=== PATIENT | female | born 2000 | race American Indian/Alaskan Native ===

== ENCOUNTER 2022-02-14 00:49 | Outpatient (CLI) | payer OTHER ==
[2022-02-14] MEDS ORDERED: LACTATED RINGERS 500 ML IV ONE (01:09)
[2022-02-14 01:44] VITALS: BP 96/54
[2022-02-14] MEDS ORDERED: ACETAMINOPHEN 500 MG TAB PO ONE (01:56)
[2022-02-14 02:23] LABS: Basophils # (Auto) 0.1 K/mm3 (0.0-0.1); Basophils % (Auto) 0.6 % (0.0-1.8); Eosinophils # (Auto) 0.2 K/mm3 (0.0-0.4); Eosinophils % (Auto) 1.8 % (0.0-4.3); Hematocrit 28.5 % (30.3-42.9); Hemoglobin 9.6 gm/dl (10.1-14.3); Lymphocytes # (Auto) 2.6 K/mm3 (1.2-5.4); Lymphocytes % (Auto) 25.7 % (13.4-35.0); Mean Corpuscular HGB Conc 34 % (30-34); Mean Corpuscular Volume 88 fl (79-97); Monocytes # (Auto) 0.5 K/mm3 (0.0-0.8); Platelet Count 235 K/mm3 (140-440); Red Blood Count 3.25 M/mm3 (3.65-5.03); Red Cell Distribution Width 14.5 % (13.2-15.2)
[2022-02-14 03:40] LABS: Bacteria,Urine 3+ /HPF (Negative); Bilirubin,Urine NEG (Negative); Blood,Urine NEG (Negative); Color,Urine Yellow (Yellow); Mucus,Urine FEW /HPF; Protein,Urine <15 mg/dL mg/dL (Negative); Urobilinogen,Urine < 2.0 mg/dL (<2.0)
== END 2022-02-14 04:48 | disposition home or self-care (01) ==
LOC: TRG 00:49 → LD 00:58 → TRG 04:48
PROVIDERS: ATTEND Student in an Organized Health Care Education/Training Program
DX: O26.892 Other specified pregnancy related conditions, second trimester (principal); M54.50 Low back pain, unspecified; R10.30 Lower abdominal pain, unspecified; R10.2 Pelvic and perineal pain; Z3A.20 20 weeks gestation of pregnancy
CPT/HCPCS: 36415; 81001; 85025; 87086; J7120; 96360

== ENCOUNTER 2022-04-10 16:09 | Outpatient (CLI) | payer OTHER ==
[2022-04-10] MEDS ORDERED: LACTATED RINGERS 500 ML IV ONE (18:45)
[2022-04-10] MEDS ORDERED: TERBUTALINE 1 MG/1 ML INJ SUB-Q SCH (19:00)
[2022-04-10 19:17] LABS: Bilirubin,Urine NEG (Negative); Blood,Urine NEG (Negative); Color,Urine Yellow (Yellow); Protein,Urine <15 mg/dL mg/dL (Negative); Urobilinogen,Urine < 2.0 mg/dL (<2.0)
[2022-04-10 19:19] LABS: Bacteria,Urine 1+ /HPF (Negative); Mucus,Urine FEW /HPF
[2022-04-10 19:28] VITALS: BP 108/60
--- NOTE | 2022-04-10 21:05 | Ultrasound Report ---
ULTRASOUND OBSTETRIC LIMITED INDICATION / CLINICAL INFORMATION: vaginal discharge. COMPARISON: None available. FINDINGS: AMNIOTIC FLUID INDEX (cm) = 10.7 PRESENTATION: Cephalic. HEART RATE (beats per minute): 157 ADDITIONAL FINDINGS: Cervical length is normal and measures 4.5 cm. IMPRESSION: Single live intrauterine . No significant abnormality. Signer Name: Thoe Fernando MD Signed: 04/10/2022 9:01 PM Workstation Name: [id number]
== END 2022-04-10 20:31 | disposition home or self-care (01) ==
LOC: TRG 16:09 → APU 16:09 → TRG 20:31
PROVIDERS: ATTEND Obstetrics & Gynecology
DX: O26.893 Other specified pregnancy related conditions, third trimester (principal); Z3A.28 28 weeks gestation of pregnancy
CPT/HCPCS: 36415; 59025; 76815; 81001; 82731; 84112

== ENCOUNTER 2022-06-23 19:31 | Inpatient (IN) | payer OTHER ==
--- NOTE | 2022-06-24 00:55 | Ultrasound Report ---
ULTRASOUND BIOPHYSICAL PROFILE Ultrasound obstetric: Limited INDICATION / CLINICAL INFORMATION: well-being COMPARISON: None available. FINDINGS: BREATHING MOVEMENT = 2 GROSS BODY MOVEMENT = 2 TONE = 2 QUALITATIVE AMNIOTIC FLUID VOLUME = 2 TOTAL BIOPHYSICAL SCORE = 8/8 AMNIOTIC FLUID INDEX (cm) = 4.3 PRESENTATION: Cephalic. HEART RATE (beats per minute): 149 IMPRESSION: 1. biophysical profile = /8 2. Decreased TIFFANIE of 4.3 cm Signer Name: David Clancy MD Signed: 06/24/2022 12:51 AM Workstation Name: [email or web address]
[2022-06-24] MEDS ORDERED: LACTATED RINGERS 1,000 ML IV SCH ×2 (02:00→04:30)
[2022-06-24 03:00] LABS: Hematocrit 31.6 % (30.3-42.9); Hemoglobin 10.6 gm/dl (10.1-14.3); Mean Corpuscular HGB Conc 33 % (30-34); Mean Corpuscular Volume 89 fl (79-97); Platelet Count 211 K/mm3 (140-440); Red Blood Count 3.57 M/mm3 (3.65-5.03); Red Cell Distribution Width 14.6 % (13.2-15.2)
--- NOTE | 2022-06-24 03:48 | History and Physical Report ---
History of Present Illness Date of examination: 06/24/22 Date of admission: 06/24/2022 Chief complaint: decreased movement History of present illness: Patient is a 21 yo at 39w3d presenting with decreased movement. Notes earlier today she noticed her baby was not moving as much. Per chart called triage and was given [facility] precautions and if no improvement to come in. Noticed movement did not change and she began having contractions so she came in for evaluation. Notes leakage that she has had for some time, but was told it maybe normal discharge as it has only been intermittent. Denies vaignal bleeding. Past History Past Medical History: asthma, other (hyperthyroidism) Past Surgical History: tonsillectomy Family/Genetic History: hypertension, cancer Social history: no significant social history - Obstetrical History Expected Date of Delivery: 06/28/22 Actual Gestation: 39 Week(s) 3 Day(s) : 1 Para: 0 Hx # Term Pregnancies: 0 Number of Pregnancies: 0 Spontaneous Abortions: 0 Induced : 0 Number of Living Children: 0 Medications and Allergies Allergies Allergy/AdvReac Type Severity Reaction Status Date / Time latex Allergy Intermediate Rash Verified 04/10/22 19:15 Home Medications Medication Instructions Recorded Confirmed Last Taken Type Albuterol Mdi (or & Nicu Only) 2 puff IH QID PRN 11/13/15 11/13/15 Unknown History [Proair] predniSONE 10 mg PO QDAY #5 tab 11/14/15 Unknown Rx Active Meds: Active Medications Lactated Ringer's (Lactated Ringers) 1,000 mls @ 125 mls/hr IV DIRECT YOMAIRA Review of Systems Genitourinary: contractions, other (decreased movement) - Vital Signs Vital signs: Vital Signs Pulse Pulse Ox 95 H 100 06/23/22 21:53 06/23/22 21:53 Temp Pulse Resp BP Pulse Ox 98.2 F 101 H 106/58 99 06/24/22 02:11 06/24/22 03:45 06/24/22 03:40 06/24/22 03:45 - Physical Exam Abdomen: Positive: normal appearance, soft, normal bowel sounds. Negative: distention, tenderness Extremities: - Obstetrical FHR: category 2 FHR comments: rare late decelerations Uterine Contraction Monitor Mode: External Uterine Contraction Pattern: Irregular Results Result Diagrams: 06/24/22 01:50 Abnormal lab results 06/24/22 Range/Units 01:50 RBC 3.57 L (3.65-5.03) M/mm3 All other labs normal. Assessment and Plan S/p BPP with TIFFANIE noted at 4.3 with CAt 2 FHT Findings reviewed with patient. Recommend IOL IOL process reviewed with patient. Discussed medications, timing, and expectations. Patient currently declines SVE. Discussed it will need to be completed once we are ready to start IOL Will begin once staffing available Records reviewed, GBS negative Type and screen, CBC, and COVID ordered - Patient Problems (1) Oligohydramnios in [place] in third trimester Current Visit: Yes Status: Acute (2) 39 weeks gestation of Current Visit: Yes Status: Acute
[2022-06-24] MEDS ORDERED: MINERAL OIL 30 ML ORAL LIQD PO PRN (04:24)
[2022-06-24] MEDS ORDERED: DINOPROSTONE 10 MG VAG SUPP VG ONE (04:24)
[2022-06-24] MEDS ORDERED: miSOPROStol 200 MCG TAB PR PRN (04:24)
[2022-06-24] MEDS ORDERED: LOPERAMIDE 2 MG CAP PO PRN (04:24)
[2022-06-24] MEDS ORDERED: LIDOCAINE (2%) 20 MG/1 ML VIAL 20 ML MDV INFILTRATI ONE (04:24)
[2022-06-24] MEDS ORDERED: TERBUTALINE 1 MG/1 ML INJ SUB-Q PRN (04:24)
[2022-06-24] MEDS ORDERED: CARBOPROST TROMETHAMINE 250 MCG/1 ML INJ IM PRN (04:24)
[2022-06-24] MEDS ORDERED: OXYTOCIN 10 UNIT/1 ML INJ IM PRN (04:24)
[2022-06-24] MEDS ORDERED: METHYLERGONOVINE MALEATE 0.2 MG/ML VIAL IM PRN (04:24)
[2022-06-24] MEDS ORDERED: OXYTOCIN DRIP 30 UNITS/500 ML BAG IV SCH (05:00)
--- NOTE | 2022-06-24 08:30 | Progress Note ---
Assessment and Plan - Patient Problems (1) Oligohydramnios in [place] in third trimester Current Visit: Yes Status: Acute Plan to address problem: IOL - Cervidil Pain management IV or epidural PRN Anticipate Subjective - Subjective Date of service: 06/24/22 Patient reports: movement normal, contractions, other (loss of mucus plug) Objective - Vital Signs Vital Signs: Vital Signs - 12hr 06/23/22 06/23/22 06/23/22 21:53 21:58 22:00 Temperature 99.4 F Pulse Rate 95 H 96 H Respiratory Rate Blood Pressure O2 Sat by Pulse 100 98 Oximetry O2 Sat by Pulse Oximetry [ Bilateral Throughout] 06/23/22 06/23/22 06/23/22 22:01 22:03 22:08 Temperature Pulse Rate 106 H 104 H 109 H Respiratory Rate Blood Pressure 109/66 O2 Sat by Pulse 99 99 Oximetry O2 Sat by Pulse Oximetry [ Bilateral Throughout] 06/23/22 06/23/22 06/23/22 22:13 22:18 22:23 Temperature Pulse Rate 112 H 105 H 101 H Respiratory Rate Blood Pressure O2 Sat by Pulse 98 98 98 Oximetry O2 Sat by Pulse Oximetry [ Bilateral Throughout] 06/23/22 06/23/22 06/23/22 22:28 22:33 22:38 Temperature Pulse Rate 110 H 91 H 101 H Respiratory Rate Blood Pressure O2 Sat by Pulse 99 98 98 Oximetry O2 Sat by Pulse Oximetry [ Bilateral Throughout] 06/23/22 06/23/22 06/23/22 22:43 22:48 22:53 Temperature Pulse Rate 98 H 104 H 91 H Respiratory Rate Blood Pressure O2 Sat by Pulse 97 97 99 Oximetry O2 Sat by Pulse Oximetry [ Bilateral Throughout] 06/23/22 06/23/22 06/23/22 22:58 23:03 23:08 Temperature Pulse Rate 104 H 109 H 104 H Respiratory Rate Blood Pressure O2 Sat by Pulse 99 99 99 Oximetry O2 Sat by Pulse Oximetry [ Bilateral Throughout] 06/23/22 06/23/22 06/23/22 23:13 23:18 23:23 Temperature Pulse Rate 90 98 H 91 H Respiratory Rate Blood Pressure O2 Sat by Pulse 99 98 99 Oximetry O2 Sat by Pulse Oximetry [ Bilateral Throughout] 06/24/22 06/24/22 06/24/22 01:29 01:34 01:39 Temperature Pulse Rate 109 H 98 H 108 H Respiratory Rate Blood Pressure O2 Sat by Pulse 98 98 98 Oximetry O2 Sat by Pulse Oximetry [ Bilateral Throughout] 06/24/22 06/24/22 06/24/22 01:44 01:49 01:54 Temperature Pulse Rate 101 H 101 H 106 H Respiratory Rate Blood Pressure O2 Sat by Pulse 99 97 97 Oximetry O2 Sat by Pulse Oximetry [ Bilateral Throughout] 06/24/22 06/24/22 06/24/22 01:59 02:04 02:09 Temperature Pulse Rate 99 H 104 H 103 H Respiratory Rate Blood Pressure O2 Sat by Pulse 97 97 98 Oximetry O2 Sat by Pulse Oximetry [ Bilateral Throughout] 06/24/22 06/24/22 06/24/22 02:11 02:12 02:14 Temperature 98.2 F Pulse Rate 109 H Respiratory Rate Blood Pressure O2 Sat by Pulse 97 Oximetry O2 Sat by Pulse 98 Oximetry [ Bilateral Throughout] 06/24/22 06/24/22 06/24/22 02:17 02:19 02:24 Temperature Pulse Rate 101 H 104 H 107 H Respiratory Rate Blood Pressure 92/54 O2 Sat by Pulse 94 98 Oximetry O2 Sat by Pulse Oximetry [ Bilateral Throughout] 06/24/22 06/24/22 06/24/22 02:29 02:34 02:39 Temperature Pulse Rate 109 H 113 H 107 H Respiratory Rate Blood Pressure O2 Sat by Pulse 98 97 98 Oximetry O2 Sat by Pulse Oximetry [ Bilateral Throughout] 06/24/22 06/24/22 06/24/22 02:44 02:49 02:54 Temperature Pulse Rate 103 H 98 H 83 Respiratory Rate Blood Pressure O2 Sat by Pulse 98 98 98 Oximetry O2 Sat by Pulse Oximetry [ Bilateral Throughout] 06/24/22 06/24/22 06/24/22 03:16 03:21 03:26 Temperature Pulse Rate 92 H 81 97 H Respiratory Rate Blood Pressure O2 Sat by Pulse 99 99 99 Oximetry O2 Sat by Pulse Oximetry [ Bilateral Throughout] 06/24/22 06/24/22 06/24/22 03:35 03:40 03:45 Temperature Pulse Rate 99 H 110 H 101 H Respiratory Rate Blood Pressure 106/58 O2 Sat by Pulse 99 100 99 Oximetry O2 Sat by Pulse Oximetry [ Bilateral Throughout] 06/24/22 06/24/22 06/24/22 03:50 03:55 04:00 Temperature Pulse Rate 111 H 99 H 100 H Respiratory Rate Blood Pressure O2 Sat by Pulse 99 99 99 Oximetry O2 Sat by Pulse Oximetry [ Bilateral Throughout] 06/24/22 06/24/22 06/24/22 04:05 04:10 04:18 Temperature Pulse Rate 95 H 113 H 105 H Respiratory Rate Blood Pressure O2 Sat by Pulse 99 98 99 Oximetry O2 Sat by Pulse Oximetry [ Bilateral Throughout] 06/24/22 06/24/22 06/24/22 04:23 04:28 04:33 Temperature Pulse Rate 91 H 98 H 88 Respiratory Rate Blood Pressure O2 Sat by Pulse 97 98 98 Oximetry O2 Sat by Pulse Oximetry [ Bilateral Throughout] 06/24/22 06/24/22 06/24/22 04:38 04:43 04:48 Temperature Pulse Rate 88 87 86 Respiratory Rate Blood Pressure O2 Sat by Pulse 98 98 99 Oximetry O2 Sat by Pulse Oximetry [ Bilateral Throughout] 06/24/22 06/24/22 06/24/22 04:55 05:00 05:05 Temperature Pulse Rate 101 H 96 H 103 H Respiratory Rate Blood Pressure O2 Sat by Pulse 99 99 100 Oximetry O2 Sat by Pulse Oximetry [ Bilateral Throughout] 06/24/22 06/24/22 06/24/22 05:10 05:15 05:20 Temperature Pulse Rate 100 H 107 H 104 H Respiratory Rate Blood Pressure O2 Sat by Pulse 100 99 100 Oximetry O2 Sat by Pulse Oximetry [ Bilateral Throughout] 06/24/22 06/24/22 06/24/22 05:25 05:30 05:35 Temperature Pulse Rate 120 H 103 H 100 H Respiratory Rate Blood Pressure O2 Sat by Pulse 99 100 99 Oximetry O2 Sat by Pulse Oximetry [ Bilateral Throughout] 06/24/22 06/24/22 06/24/22 05:40 05:45 05:53 Temperature Pulse Rate 99 H 97 H 92 H Respiratory Rate Blood Pressure O2 Sat by Pulse 100 100 99 Oximetry O2 Sat by Pulse Oximetry [ Bilateral Throughout] 06/24/22 06/24/22 06/24/22 05:58 06:03 06:08 Temperature Pulse Rate 95 H 95 H 96 H Respiratory Rate Blood Pressure O2 Sat by Pulse 98 98 99 Oximetry O2 Sat by Pulse Oximetry [ Bilateral Throughout] 06/24/22 06/24/22 06/24/22 06:13 06:18 06:23 Temperature Pulse Rate 90 86 88 Respiratory Rate Blood Pressure O2 Sat by Pulse 97 98 97 Oximetry O2 Sat by Pulse Oximetry [ Bilateral Throughout] 06/24/22 06/24/22 06/24/22 06:28 06:33 06:37 Temperature Pulse Rate 88 87 80 Respiratory Rate Blood Pressure O2 Sat by Pulse 96 97 93 Oximetry O2 Sat by Pulse Oximetry [ Bilateral Throughout] 06/24/22 06/24/22 06/24/22 06:38 06:43 06:48 Temperature Pulse Rate 100 H 87 87 Respiratory Rate Blood Pressure O2 Sat by Pulse 98 97 97 Oximetry O2 Sat by Pulse Oximetry [ Bilateral Throughout] 06/24/22 06/24/22 06/24/22 06:53 06:58 07:03 Temperature Pulse Rate 86 90 92 H Respiratory Rate Blood Pressure O2 Sat by Pulse 97 98 98 Oximetry O2 Sat by Pulse Oximetry [ Bilateral Throughout] 06/24/22 06/24/22 06/24/22 07:08 07:13 07:18 Temperature Pulse Rate 94 H 96 H 101 H Respiratory Rate Blood Pressure O2 Sat by Pulse 97 97 98 Oximetry O2 Sat by Pulse Oximetry [ Bilateral Throughout] 06/24/22 06/24/22 06/24/22 07:23 07:28 07:33 Temperature Pulse Rate 100 H 100 H 92 H Respiratory Rate Blood Pressure O2 Sat by Pulse 97 98 98 Oximetry O2 Sat by Pulse Oximetry [ Bilateral Throughout] 06/24/22 06/24/22 06/24/22 07:38 07:51 07:56 Temperature Pulse Rate 104 H 92 H 96 H Respiratory Rate Blood Pressure O2 Sat by Pulse 98 99 98 Oximetry O2 Sat by Pulse Oximetry [ Bilateral Throughout] 06/24/22 06/24/22 06/24/22 07:58 08:01 08:06 Temperature Pulse Rate 90 86 98 H Respiratory Rate Blood Pressure 114/74 O2 Sat by Pulse 100 99 Oximetry O2 Sat by Pulse Oximetry [ Bilateral Throughout] 06/24/22 06/24/22 06/24/22 08:11 08:14 08:15 Temperature 98.1 F Pulse Rate 90 Respiratory 16 Rate Blood Pressure O2 Sat by Pulse 99 Oximetry O2 Sat by Pulse 98 Oximetry [ Bilateral Throughout] 06/24/22 06/24/22 06/24/22 08:16 08:21 08:26 Temperature Pulse Rate 91 H 88 95 H Respiratory Rate Blood Pressure O2 Sat by Pulse 100 99 100 Oximetry O2 Sat by Pulse Oximetry [ Bilateral Throughout] - Exam Narrative Exam: Pt in bed unhappy about having to be induced, discussed the reason why its recommended and verbalized understanding and doesn't want to be difficult but just really wanted to go into labor on her own. Patient agrees to IOL, SVE /-2. Agreed to shower, eat breakfast, and start with cervidil. Report FM but not as much as baby normally moves, CTX are occassional, denies LOF, VB. Anticipate . Breasts: normal Cardiovascular: Regular rate Lungs: Normal air movement Abdomen: Present: normal appearance, soft Vulva: both: normal Uterus: Present: other (gravid) FHR: category 1 Uterine Contraction Monitor Mode: Palpation Cervical Dilatation: 1 Cervical Effacement Percentage: 70 station: -2 Uterine Contraction Frequency (min): occasional Uterine Contraction Duration: 60-90 Uterine Contraction Pattern: Irregular Uterine Tone Measurement Phase: Contraction Uterine Contraction Intensity: Moderate Extremities: normal Deep Tendon Reflex Grade: Normal but brisk +3 - Labs Labs: Abnormal Labs 06/24/22 01:50 RBC 3.57 L Laboratory Results - last 24 hr 06/24/22 06/24/22 01:50 01:50 WBC 8.2 RBC 3.57 L Hgb 10.6 Hct 31.6 MCV 89 MCH 30 MCHC 33 RDW 14.6 Plt Count 211 Blood Type A POSITIVE Antibody Screen Negative
--- NOTE | 2022-06-24 13:30 | Progress Note ---
Assessment and Plan - Patient Problems (1) Oligohydramnios in [place] in third trimester Current Visit: Yes Status: Acute Plan to address problem: IOL - Cervidil Pain management IV or epidural PRN Anticipate Subjective - Subjective Date of service: 06/24/22 Interval history: Pt in bed resting, Discussed starting IOL with cervidil, pt very emotional, unhappy, and upset because she feels like she has no control. Informed patient that she has the right to refuse recommendations. she agrees to continue with IOL. Cervidil inserted, pt hysterical and crying during the insertion. Re-assess in 12 hours, Anticipate . Patient reports: movement normal, contractions Objective - Vital Signs Vital Signs: Vital Signs - 12hr 06/24/22 06/24/22 06/24/22 01:29 01:34 01:39 Temperature Pulse Rate 109 H 98 H 108 H Respiratory Rate Blood Pressure O2 Sat by Pulse 98 98 98 Oximetry O2 Sat by Pulse Oximetry [ Bilateral Throughout] 06/24/22 06/24/22 06/24/22 01:44 01:49 01:54 Temperature Pulse Rate 101 H 101 H 106 H Respiratory Rate Blood Pressure O2 Sat by Pulse 99 97 97 Oximetry O2 Sat by Pulse Oximetry [ Bilateral Throughout] 06/24/22 06/24/22 06/24/22 01:59 02:04 02:09 Temperature Pulse Rate 99 H 104 H 103 H Respiratory Rate Blood Pressure O2 Sat by Pulse 97 97 98 Oximetry O2 Sat by Pulse Oximetry [ Bilateral Throughout] 06/24/22 06/24/22 06/24/22 02:11 02:12 02:14 Temperature 98.2 F Pulse Rate 109 H Respiratory Rate Blood Pressure O2 Sat by Pulse 97 Oximetry O2 Sat by Pulse 98 Oximetry [ Bilateral Throughout] 06/24/22 06/24/22 06/24/22 02:17 02:19 02:24 Temperature Pulse Rate 101 H 104 H 107 H Respiratory Rate Blood Pressure 92/54 O2 Sat by Pulse 94 98 Oximetry O2 Sat by Pulse Oximetry [ Bilateral Throughout] 06/24/22 06/24/22 06/24/22 02:29 02:34 02:39 Temperature Pulse Rate 109 H 113 H 107 H Respiratory Rate Blood Pressure O2 Sat by Pulse 98 97 98 Oximetry O2 Sat by Pulse Oximetry [ Bilateral Throughout] 08/06/24/22 06/24/22 02:44 02:49 02:54 Temperature Pulse Rate 103 H 98 H 83 Respiratory Rate Blood Pressure O2 Sat by Pulse 98 98 98 Oximetry O2 Sat by Pulse Oximetry [ Bilateral Throughout] 06/24/22 06/24/22 06/24/22 03:16 03:21 03:26 Temperature Pulse Rate 92 H 81 97 H Respiratory Rate Blood Pressure O2 Sat by Pulse 99 99 99 Oximetry O2 Sat by Pulse Oximetry [ Bilateral Throughout] 06/24/22 06/24/22 06/24/22 03:35 03:40 03:45 Temperature Pulse Rate 99 H 110 H 101 H Respiratory Rate Blood Pressure 106/58 O2 Sat by Pulse 99 100 99 Oximetry O2 Sat by Pulse Oximetry [ Bilateral Throughout] 06/24/22 06/24/22 06/24/22 03:50 03:55 04:00 Temperature Pulse Rate 111 H 99 H 100 H Respiratory Rate Blood Pressure O2 Sat by Pulse 99 99 99 Oximetry O2 Sat by Pulse Oximetry [ Bilateral Throughout] 06/24/22 06/24/22 06/24/22 04:05 04:10 04:18 Temperature Pulse Rate 95 H 113 H 105 H Respiratory Rate Blood Pressure O2 Sat by Pulse 99 98 99 Oximetry O2 Sat by Pulse Oximetry [ Bilateral Throughout] 06/24/22 06/24/22 06/24/22 04:23 04:28 04:33 Temperature Pulse Rate 91 H 98 H 88 Respiratory Rate Blood Pressure O2 Sat by Pulse 97 98 98 Oximetry O2 Sat by Pulse Oximetry [ Bilateral Throughout] 06/24/22 06/24/22 06/24/22 04:38 04:43 04:48 Temperature Pulse Rate 88 87 86 Respiratory Rate Blood Pressure O2 Sat by Pulse 98 98 99 Oximetry O2 Sat by Pulse Oximetry [ Bilateral Throughout] 06/24/22 06/24/22 06/24/22 04:55 05:00 05:05 Temperature Pulse Rate 101 H 96 H 103 H Respiratory Rate Blood Pressure O2 Sat by Pulse 99 99 100 Oximetry O2 Sat by Pulse Oximetry [ Bilateral Throughout] 06/24/22 06/24/22 06/24/22 05:10 05:15 05:20 Temperature Pulse Rate 100 H 107 H 104 H Respiratory Rate Blood Pressure O2 Sat by Pulse 100 99 100 Oximetry O2 Sat by Pulse Oximetry [ Bilateral Throughout] 0806/24/22 06/24/22 05:25 05:30 05:35 Temperature Pulse Rate 120 H 103 H 100 H Respiratory Rate Blood Pressure O2 Sat by Pulse 99 100 99 Oximetry O2 Sat by Pulse Oximetry [ Bilateral Throughout] 06/24/22 06/24/22 06/24/22 05:40 05:45 05:53 Temperature Pulse Rate 99 H 97 H 92 H Respiratory Rate Blood Pressure O2 Sat by Pulse 100 100 99 Oximetry O2 Sat by Pulse Oximetry [ Bilateral Throughout] 06/24/22 06/24/22 06/24/22 05:58 06:03 06:08 Temperature Pulse Rate 95 H 95 H 96 H Respiratory Rate Blood Pressure O2 Sat by Pulse 98 98 99 Oximetry O2 Sat by Pulse Oximetry [ Bilateral Throughout] 06/24/22 06/24/22 06/24/22 06:13 06:18 06:23 Temperature Pulse Rate 90 86 88 Respiratory Rate Blood Pressure O2 Sat by Pulse 97 98 97 Oximetry O2 Sat by Pulse Oximetry [ Bilateral Throughout] 06/24/22 06/24/22 06/24/22 06:28 06:33 06:37 Temperature Pulse Rate 88 87 80 Respiratory Rate Blood Pressure O2 Sat by Pulse 96 97 93 Oximetry O2 Sat by Pulse Oximetry [ Bilateral Throughout] 06/24/22 06/24/22 06/24/22 06:38 06:43 06:48 Temperature Pulse Rate 100 H 87 87 Respiratory Rate Blood Pressure O2 Sat by Pulse 98 97 97 Oximetry O2 Sat by Pulse Oximetry [ Bilateral Throughout] 06/24/22 06/24/22 06/24/22 06:53 06:58 07:03 Temperature Pulse Rate 86 90 92 H Respiratory Rate Blood Pressure O2 Sat by Pulse 97 98 98 Oximetry O2 Sat by Pulse Oximetry [ Bilateral Throughout] 06/24/22 06/24/22 06/24/22 07:08 07:13 07:18 Temperature Pulse Rate 94 H 96 H 101 H Respiratory Rate Blood Pressure O2 Sat by Pulse 97 97 98 Oximetry O2 Sat by Pulse Oximetry [ Bilateral Throughout] 06/24/22 06/24/22 06/24/22 07:23 07:28 07:33 Temperature Pulse Rate 100 H 100 H 92 H Respiratory Rate Blood Pressure O2 Sat by Pulse 97 98 98 Oximetry O2 Sat by Pulse Oximetry [ Bilateral Throughout] 06/24/22 06/24/22 06/24/22 07:38 07:51 07:56 Temperature Pulse Rate 104 H 92 H 96 H Respiratory Rate Blood Pressure O2 Sat by Pulse 98 99 98 Oximetry O2 Sat by Pulse Oximetry [ Bilateral Throughout] 06/24/22 06/24/22 06/24/22 07:58 08:01 08:06 Temperature Pulse Rate 90 86 98 H Respiratory Rate Blood Pressure 114/74 O2 Sat by Pulse 100 99 Oximetry O2 Sat by Pulse Oximetry [ Bilateral Throughout] 06/24/22 06/24/22 06/24/22 08:11 08:14 08:15 Temperature 98.1 F Pulse Rate 90 Respiratory 16 Rate Blood Pressure O2 Sat by Pulse 99 Oximetry O2 Sat by Pulse 98 Oximetry [ Bilateral Throughout] 06/24/22 06/24/22 06/24/22 08:16 08:21 08:26 Temperature Pulse Rate 91 H 88 95 H Respiratory Rate Blood Pressure O2 Sat by Pulse 100 99 100 Oximetry O2 Sat by Pulse Oximetry [ Bilateral Throughout] 06/24/22 06/24/22 11:40 12:17 Temperature 98 F Pulse Rate 86 Respiratory 16 Rate Blood Pressure 105/63 O2 Sat by Pulse Oximetry O2 Sat by Pulse Oximetry [ Bilateral Throughout] - Exam FHR: category 1 Uterine Contraction Monitor Mode: External Uterine Contraction Frequency (min): irregular Uterine Contraction Duration: 60-90 Uterine Contraction Pattern: Irregular Uterine Tone Measurement Phase: Resting Extremities: edema (+1) - Labs Labs: Abnormal Labs 06/24/22 01:50 RBC 3.57 L Laboratory Results - last 24 hr 06/24/22 06/24/22 06/24/22 01:50 01:50 10:25 WBC 8.2 RBC 3.57 L Hgb 10.6 Hct 31.6 MCV 89 MCH 30 MCHC 33 RDW 14.6 Plt Count 211 SARS-CoV-2 (PCR) Negative Blood Type A POSITIVE Antibody Screen Negative
[2022-06-24] MEDS: BUTORPHANOL 2 MG/1 ML INJ IV PRN (22:28)
[2022-06-25] MEDS: BUTORPHANOL 2 MG/1 ML INJ IV PRN (01:17)
[2022-06-25] MEDS ORDERED: fentaNYL-BUPIV 2 MCG/ML-0.125% 200 MCG/100 ML BAG EPIDURAL SCH (05:28)
[2022-06-25] MEDS ORDERED: NALOXONE 0.4 MG/1 ML INJ IV PRN (05:28)
[2022-06-25] MEDS ORDERED: ePHEDrine SULFATE 50 MG/1 ML INJ IV PRN (05:28)
--- NOTE | 2022-06-25 05:29 | Anesthesia Consultation ---
Anesthesia Consult and Med Hx Date of service: 06/25/22 - Airway Anesthetic Teeth Evaluation: Good ROM Head & Neck: Adequate Mental/Hyoid Distance: Adequate Mallampati Class: Class II Intubation Access Assessment: Probably Good - Pulmonary Exam CTA: Yes - Cardiac Exam Cardiac Exam: RRR - Pre-Operative Health Status ASA Pre-Surgery Classification: ASA2 Proposed Anesthetic Plan: Epidural - Pulmonary Hx Smoking: No Hx Asthma: Yes (last episode durig childhood) Hx Respiratory Symptoms: No SOB: No COPD: No Home Oxygen Therapy: No Hx Pneumonia: No Hx Sleep Apnea: No - Cardiovascular System Hx Hypertension: No Hx Coronary Artery Disease: No Hx Heart Attack/AMI: No Hx Angina: No Hx Percutaneous Transluminal Coronary Angioplasty (PTCA): No Hx Cardia Arrhythmia: No Hx Pacemaker: No Hx Internal Defibrillator: No Hx Valvular Heart Disease: No Hx Heart Murmur: No Hx Peripheral Vascular Disease: No - Central Nervous System Hx Neuromuscular Disorder: No Hx Seizures: No CVA: No Hx Back Pain: No Hx Psychiatric Problems: No - Gastrointestinal Hx Ulcer: No Hx Gastroesophageal Reflux Disease: No - Endocrine Hx Renal Disease: No Hx End Stage Renal Disease: No Hx Cirrhosis: No Hx Liver Disease: No Hx Insulin Dependent Diabetes: No Hx Non-Insulin Dependent Diabetes: No Hx Thyroid Disease: No Hx Hypothyroidism: No Hx Hyperthyroidism: Yes - Hematic Hx Anemia: No Hx Sickle Cell Disease: No - Other Systems Hx Alcohol Use: Yes (social before ) Hx Substance Use: No Hx Cancer: No Hx Obesity: No
--- NOTE | 2022-06-25 05:30 | Anesthesia Day of Surgery ---
Anesthesia Day of Surgery - Day of Surgery Patient Examined: Yes Patient H&P Reviewed: Yes Patient is NPO: Yes Beta Blockers: No Cardiac Clearance: No Pulmonary Clearance: No Chuy's Test: N/A
[2022-06-25] MEDS: ePHEDrine SULFATE 50 MG/1 ML INJ IV PRN ×3 (05:31→06:02)
--- NOTE | 2022-06-25 05:34 | Progress Note ---
Labor Epidural - Labor Epidural Start Time: 05:11 Stop Time: 05:16 Performed by:: WILNER JEWELL Procedure: Epidural Requested for Labor Pain. H&P and PT Chart reviewed and consent obtained. Time out performed and the procedure was explained, all questions answered. Patient was placed in a sitting position with monitors applied. The PTs back was prepped and draped in usual sterile fashion. The Skin was localized with 3 mL of 1% lidocaine at L3-L4. A 17-gauge Touhy epidural needle was advanced to KORIN with saline at 7 cm and no blood/CSF was noted via epidural needle. Epidural catheter was advanced to 12 cm. There was negative aspiration for blood and CSF in the catheter and negative response to a test dose of 3 ml 1.5% lidocaine w/ Epi and a sterile dressing was applied Patient tolerated the procedure well and there were no immediate complications noted.
[2022-06-25] MEDS: OXYTOCIN DRIP 30 UNITS/500 ML BAG IV SCH ×2 (05:50→06:30)
--- NOTE | 2022-06-25 07:57 | Progress Note ---
Assessment and Plan A: 21 y.o. @ 39.4 wks, IOL d/t Oligohydramnios. Active labor. - Patient Problems (1) 39 weeks gestation of Current Visit: Yes Status: Acute Plan to address problem: Continue to monitor status through EFM. Anticipate . (2) Oligohydramnios in [place] in third trimester Current Visit: Yes Status: Acute Plan to address problem: Continue with IOL. Continue with Pitocin per protocol. AROM forebag: monitor maternal temperature. Subjective - Subjective Date of service: 06/25/22 Principal diagnosis: IUP @ 39.4 IOL d/t oligohydramnios at term. Interval history: Pt comfortable with epidural. Patient reports: movement normal, contractions Objective - Vital Signs Vital Signs: Vital Signs - 12hr 06/24/22 06/24/22 06/24/22 22:33 22:40 23:19 Temperature 98 F Pulse Rate 96 H 91 H Respiratory 18 Rate Blood Pressure 110/61 O2 Sat by Pulse 100 97 Oximetry 06/24/22 06/24/22 06/24/22 23:24 23:29 23:34 Temperature Pulse Rate 90 98 H 97 H Respiratory Rate Blood Pressure O2 Sat by Pulse 97 100 98 Oximetry 06/24/22 06/24/22 06/24/22 23:39 23:41 23:44 Temperature Pulse Rate 103 H 104 H 85 Respiratory Rate Blood Pressure 98/55 O2 Sat by Pulse 100 99 Oximetry 06/24/22 06/24/22 06/24/22 23:49 23:54 23:59 Temperature Pulse Rate 86 89 116 H Respiratory Rate Blood Pressure O2 Sat by Pulse 98 98 97 Oximetry 06/25/22 06/25/22 06/25/22 00:04 00:09 00:14 Temperature Pulse Rate 96 H 91 H 101 H Respiratory Rate Blood Pressure O2 Sat by Pulse 98 100 98 Oximetry 06/25/22 06/25/22 06/25/22 00:19 00:24 00:29 Temperature Pulse Rate 105 H 99 H 94 H Respiratory Rate Blood Pressure O2 Sat by Pulse 100 99 98 Oximetry 06/25/22 06/25/22 06/25/22 00:34 00:39 00:42 Temperature Pulse Rate 107 H 104 H 100 H Respiratory Rate Blood Pressure 118/72 O2 Sat by Pulse 97 97 Oximetry 06/25/22 06/25/22 06/25/22 00:44 00:49 00:54 Temperature Pulse Rate 101 H 102 H 101 H Respiratory Rate Blood Pressure O2 Sat by Pulse 97 97 97 Oximetry 06/25/22 06/25/22 06/25/22 00:59 01:04 01:09 Temperature Pulse Rate 107 H 104 H 104 H Respiratory Rate Blood Pressure O2 Sat by Pulse 96 97 99 Oximetry 06/25/22 06/25/22 06/25/22 01:14 01:19 01:22 Temperature Pulse Rate 100 H 104 H 104 H Respiratory Rate Blood Pressure O2 Sat by Pulse 99 98 94 Oximetry 06/25/22 06/25/22 06/25/22 01:24 01:27 01:29 Temperature Pulse Rate 104 H 105 H 106 H Respiratory Rate Blood Pressure O2 Sat by Pulse 95 94 95 Oximetry 06/25/22 06/25/22 06/25/22 01:34 01:39 01:40 Temperature Pulse Rate 109 H 109 H 107 H Respiratory Rate Blood Pressure O2 Sat by Pulse 94 95 94 Oximetry 06/25/22 06/25/22 06/25/22 01:44 01:49 01:54 Temperature Pulse Rate 115 H 111 H 115 H Respiratory Rate Blood Pressure O2 Sat by Pulse 95 96 96 Oximetry 06/25/22 06/25/22 06/25/22 01:59 02:04 02:09 Temperature Pulse Rate 107 H 120 H 114 H Respiratory Rate Blood Pressure O2 Sat by Pulse 96 96 96 Oximetry 06/25/22 06/25/22 06/25/22 02:14 02:19 02:24 Temperature Pulse Rate 112 H 102 H 98 H Respiratory Rate Blood Pressure O2 Sat by Pulse 99 98 97 Oximetry 06/25/22 06/25/22 06/25/22 02:29 02:34 02:39 Temperature Pulse Rate 108 H 108 H 113 H Respiratory Rate Blood Pressure O2 Sat by Pulse 96 97 96 Oximetry 06/25/22 06/25/22 06/25/22 02:44 02:49 02:54 Temperature Pulse Rate 112 H 100 H 113 H Respiratory Rate Blood Pressure O2 Sat by Pulse 98 98 97 Oximetry 06/25/22 06/25/22 06/25/22 02:59 03:04 03:05 Temperature 98.4 F Pulse Rate 120 H 114 H Respiratory 20 Rate Blood Pressure O2 Sat by Pulse 97 100 99 Oximetry 06/25/22 06/25/22 06/25/22 03:09 03:14 03:28 Temperature Pulse Rate 125 H 104 H 103 H Respiratory Rate Blood Pressure O2 Sat by Pulse 100 97 96 Oximetry 06/25/22 06/25/22 06/25/22 03:33 03:38 03:43 Temperature Pulse Rate 133 H 145 H 122 H Respiratory Rate Blood Pressure O2 Sat by Pulse 97 97 97 Oximetry 06/25/22 06/25/22 06/25/22 03:48 03:53 03:58 Temperature Pulse Rate 131 H 104 H 103 H Respiratory Rate Blood Pressure O2 Sat by Pulse 99 99 100 Oximetry 06/25/22 06/25/22 06/25/22 04:02 04:03 04:08 Temperature Pulse Rate 92 H 101 H 87 Respiratory Rate Blood Pressure 109/71 O2 Sat by Pulse 99 100 Oximetry 06/25/22 06/25/22 06/25/22 04:13 04:18 04:23 Temperature Pulse Rate 84 85 96 H Respiratory Rate Blood Pressure O2 Sat by Pulse 100 98 100 Oximetry 06/25/22 06/25/22 06/25/22 04:28 04:33 04:38 Temperature Pulse Rate 91 H 87 94 H Respiratory Rate Blood Pressure O2 Sat by Pulse 100 100 100 Oximetry 06/25/22 06/25/22 06/25/22 04:43 04:46 04:48 Temperature Pulse Rate 97 H 118 H 109 H Respiratory Rate Blood Pressure O2 Sat by Pulse 100 89 100 Oximetry 06/25/22 06/25/22 06/25/22 04:53 04:58 05:02 Temperature Pulse Rate 104 H 105 H 108 H Respiratory Rate Blood Pressure 136/95 O2 Sat by Pulse 98 99 Oximetry 06/25/22 06/25/22 06/25/22 05:03 05:08 05:13 Temperature Pulse Rate 99 H 134 H 129 H Respiratory Rate Blood Pressure O2 Sat by Pulse 99 100 99 Oximetry 06/25/22 06/25/22 06/25/22 05:18 05:21 05:23 Temperature Pulse Rate 119 H 118 H 132 H Respiratory Rate Blood Pressure 112/67 104/56 O2 Sat by Pulse 100 100 Oximetry 06/25/22 06/25/22 06/25/22 05:28 05:29 05:32 Temperature Pulse Rate 119 H 115 H 111 H Respiratory Rate Blood Pressure 86/47 99/54 O2 Sat by Pulse 100 Oximetry 06/25/22 06/25/22 06/25/22 05:33 05:34 05:37 Temperature Pulse Rate 120 H 121 H 118 H Respiratory Rate Blood Pressure 88/49 89/51 O2 Sat by Pulse 100 Oximetry 06/25/22 06/25/22 06/25/22 05:38 05:40 05:43 Temperature Pulse Rate 115 H 109 H 122 H Respiratory Rate Blood Pressure 100/55 O2 Sat by Pulse 99 100 Oximetry 06/25/22 06/25/22 06/25/22 05:47 05:48 05:53 Temperature Pulse Rate 121 H 103 H 111 H Respiratory Rate Blood Pressure 81/46 81/47 O2 Sat by Pulse 96 99 Oximetry 06/25/22 06/25/22 06/25/22 05:58 06:01 06:03 Temperature Pulse Rate 121 H 126 H 112 H Respiratory Rate Blood Pressure 106/64 86/55 O2 Sat by Pulse 97 99 Oximetry 06/25/22 06/25/22 06/25/22 06:07 06:08 06:10 Temperature Pulse Rate 116 H 122 H 127 H Respiratory Rate Blood Pressure 107/66 98/60 O2 Sat by Pulse 99 Oximetry 06/25/22 06/25/22 06/25/22 06:13 06:17 06:18 Temperature Pulse Rate 130 H 96 H 101 H Respiratory Rate Blood Pressure 91/58 114/78 O2 Sat by Pulse 100 99 Oximetry 06/25/22 06/25/22 06/25/22 06:23 06:28 06:33 Temperature Pulse Rate 103 H 97 H 108 H Respiratory Rate Blood Pressure O2 Sat by Pulse 99 99 99 Oximetry 06/25/22 06/25/22 06/25/22 06:38 06:43 06:48 Temperature Pulse Rate 98 H 80 83 Respiratory Rate Blood Pressure 113/72 O2 Sat by Pulse 100 99 98 Oximetry 06/25/22 06/25/22 06/25/22 06:53 06:58 07:03 Temperature Pulse Rate 91 H 100 H 98 H Respiratory Rate Blood Pressure O2 Sat by Pulse 98 98 98 Oximetry 06/25/22 06/25/22 06/25/22 07:08 07:13 07:18 Temperature Pulse Rate 88 97 H 92 H Respiratory Rate Blood Pressure 113/66 O2 Sat by Pulse 98 98 98 Oximetry 06/25/22 06/25/22 06/25/22 07:23 07:28 07:33 Temperature Pulse Rate 93 H 90 113 H Respiratory Rate Blood Pressure O2 Sat by Pulse 98 98 99 Oximetry 06/25/22 06/25/22 06/25/22 07:38 07:43 07:48 Temperature Pulse Rate 118 H 129 H 104 H Respiratory Rate Blood Pressure O2 Sat by Pulse 100 100 100 Oximetry 06/25/22 07:53 Temperature Pulse Rate 107 H Respiratory Rate Blood Pressure O2 Sat by Pulse 99 Oximetry - Exam Narrative Exam: AROM meconium stained fluid. Cardiovascular: Regular rate Lungs: Normal air movement Abdomen: Present: normal appearance, soft Vulva: both: normal Uterus: Present: normal FHR: category 1 Uterine Contraction Monitor Mode: External Cervical Dilatation: 6 Cervical Effacement Percentage: 90 station: -2 Uterine Contraction Pattern: Regular Uterine Tone Measurement Phase: Resting Uterine Contraction Intensity: Moderate Extremities: normal - Labs Labs: Abnormal Labs 06/24/22 01:50 RBC 3.57 L Laboratory Results - last 24 hr 06/24/22 10:25 SARS-CoV-2 (PCR) Negative
--- NOTE | 2022-06-25 10:49 | Event Note ---
Date: 06/25/22 Pt feeling intense pressure. Cervical exam . Will continue with Pitocin per protocol. 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 Anticipate .
[2022-06-25] MEDS ORDERED: ACETAMINOPHEN 325 MG TAB PO PRN (11:30)
[2022-06-25] MEDS ORDERED: BUPIVACAINE/PF (0.5%) 5 MG/1 ML 10 ML VIAL INFILTRATI ONE (11:37)
--- NOTE | 2022-06-25 15:53 | Procedure Note ---
OB Delivery Note - Delivery Date of Delivery: 06/25/22 (Delivery @ 1446) Estimated blood loss: 200cc - Vaginal Delivery presentation: vertex Delivery position: OA Intrapartum events: none Delivery induction: cervidil Delivery augmentation: rupture of membranes (AROM of forebag), pitocin Route of delivery: Delivery placenta: spontaneous Delivery cord: 3 umbilical vessels Episiotomy: none Delivery laceration: other (Periurethral abrasions noted. Hemostatic, no repair needed. ) Anesthesia: epidural Delivery comments: of female . to mother's abdomen for skin to skin. Cord clamped after cessation of pulse. Cut by grandmother of infant. Spontaneous delivery of placenta, complete, intact, 3 vessels noted. Perineum and vagina inspected, periuretheral lacerations noted that are hemostatic and need no repair. Fundus firm, minimal bleeding noted. Apgars 8,9. Blood loss 200ml. Infant weight 7-5. Sponges and instruments counted with RN X2 and correct X2. and mother left in care of RN in stable condition. - A at 1 minute: 8 at 5 minutes: 9 Gender: Female (" Lisandro Greenfield", 7-5)
[2022-06-25] MEDS ORDERED: LANOLIN/ZINC/DIMETHICONE (LANSINOH) 7 GM TP PRN ×2 (21:07)
[2022-06-25] MEDS ORDERED: BENZOCAINE/MENTHOL 20/0.5% TOP SPRAY 56 GM TP PRN (21:07)
[2022-06-25] MEDS ORDERED: PROMETHAZINE 25 MG TAB PO PRN (21:07)
[2022-06-25] MEDS ORDERED: ONDANSETRON 4 MG/2 ML INJ IV PRN (21:07)
[2022-06-25] MEDS ORDERED: ACETAMINOPHEN 500 MG TAB PO PRN (21:07)
[2022-06-25] MEDS ORDERED: diphenhydrAMINE 25 MG CAP PO PRN (21:07)
[2022-06-25] MEDS ORDERED: WITCH HAZEL/ GLYCERIN PAD TP PRN (21:07)
[2022-06-25] MEDS ORDERED: oxyCODONE /ACETAMINOPHEN 5-325MG TAB PO PRN (21:07)
[2022-06-25] MEDS ORDERED: PROMETHAZINE 25 MG RECT SUPP PR PRN (21:07)
[2022-06-25] MEDS ORDERED: MAGNESIUM HYDROXIDE (MOM) ORAL LIQD UDC PO PRN (21:07)
[2022-06-25] MEDS ORDERED: OXYTOCIN DRIP 30 UNITS/500 ML BAG IV SCH (21:07)
[2022-06-25] MEDS ORDERED: miSOPROStol 100 MCG TAB PR PRN (21:07)
[2022-06-25] MEDS: IBUPROFEN 800 MG TAB PO SCH (22:13)
[2022-06-25] MEDS: DOCUSATE SODIUM 100 MG CAP PO SCH (22:13)
[2022-06-26] MEDS: IBUPROFEN 800 MG TAB PO SCH ×2 (05:36→12:32)
[2022-06-26] MEDS ORDERED: TETANUS,DIPH,PERTUSS(ACELL) VACCINE 0.5 ML SYRINGE IM ONE (06:00)
[2022-06-26 06:22] LABS: Hematocrit 31.5 % (30.3-42.9); Hemoglobin 10.3 gm/dl (10.1-14.3)
--- NOTE | 2022-06-26 08:55 | Discharge Summary ---
Providers - Providers Date of Admission: 06/25/22 10:56 Date of discharge: 06/26/22 (desires d/c home today) Attending physician: JOSEPHINE DELGADO Primary care physician: JOSEPHINE DELGADO Hospitalization Reason for admission: IOL Condition: Good Pertinent studies: post delivery H&H 10.3/31.5 Procedures: Hospital course: uncomplicated and postop course Disposition: 01 HOME / SELF CARE / HOMELESS Final Discharge Diagnosis (Prints w/discharge instructions): vaginal Time spent for discharge: 20 - Discharge Diagnoses (1) (normal spontaneous vaginal delivery) Status: Acute Core Measure Documentation - Palliative Care Palliative Care/ Comfort Measures: Not Applicable - Core Measures Any of the following diagnoses?: none Exam - Constitutional Vitals: Temp Pulse Resp BP Pulse Ox 97.9 F 108 H 16 107/67 98 06/26/22 08:10 06/26/22 08:10 06/26/22 08:10 06/26/22 08:10 06/26/22 08:10 General appearance: Present: no acute distress, well-nourished - EENT Eyes: Present: PERRL ENT: hearing intact, clear oral mucosa - Neck Neck: Present: supple, normal ROM - Respiratory Respiratory effort: normal Respiratory: bilateral: CTA - Cardiovascular Rhythm: regular Heart Sounds: Absent: rub, click - Extremities Extremities: No edema Peripheral Pulses: within normal limits - Abdominal General gastrointestinal: Present: soft, non-tender, non-distended, normal bowel sounds Female genitourinary: Present: normal - Integumentary Integumentary: Present: clear, warm, dry - Musculoskeletal Musculoskeletal: gait normal, strength equal bilaterally - Psychiatric Psychiatric: appropriate mood/affect, intact judgment & insight - Neurologic Neurologic: CNII-XII intact, moves all extremities - Additional findings Additional findings: lochia scant, fundus firm Plan Activity: no restrictions Diet: regular Follow up with: JOSEPHINE DELGADO MD [Primary Care Provider] - 6 Weeks (Congratulations! Please call [phone] to schedule your visit in 4 - 6 weeks, call for any questions or concerns. )
[2022-06-26] MEDS: DOCUSATE SODIUM 100 MG CAP PO SCH (09:32)
[2022-06-26] MEDS ORDERED: PRENATAL VIT27-FE FUMARATE-FOLIC ACID VIT TAB PO SCH (10:00)
[2022-06-26 16:52] VITALS: BP 108/71
--- NOTE | 2022-06-27 07:19 | Post Anesthesia Evaluation ---
- Post Anesthesia Evaluation Patient Participated: No Airway Patent: Yes Stable Respiratory Function: Yes Nausea/Vomiting: No Temp > 96.8F: Yes Pain Manageable: Yes Adequeate Hydration: Yes Anesthesia Complications: No Block Receding Appropriately: Yes Patient on Ventilator: No
== END 2022-06-26 20:25 | disposition home or self-care (01) | DRG 806 ==
LOC: TRG 19:31 → APU 21:50 → LD 06-24 01:42 → TRG 06-25 11:37 → OB 06-25 18:39
PROVIDERS: ADMIT Obstetrics & Gynecology; ATTEND Obstetrics & Gynecology
PROC: 10E0XZZ Delivery of Products of Conception, External Approach (ICD-10-PCS; principal; 2022-06-25)
PROC: 3E0R3BZ Introduction of Anesthetic Agent into Spinal Canal, Percutaneous Approach (ICD-10-PCS; 2022-06-25)
PROC: 00HU33Z Insertion of Infusion Device into Spinal Canal, Percutaneous Approach (ICD-10-PCS; 2022-06-25)
PROC: 3E0P7VZ Introduction of Hormone into Female Reproductive, Via Natural or Artificial Opening (ICD-10-PCS; 2022-06-25)
PROC: 10907ZC Drainage of Amniotic Fluid, Therapeutic from Products of Conception, Via Natural or Artificial Opening (ICD-10-PCS; 2022-06-25)
PROC: 3E0234Z Introduction of Serum, Toxoid and Vaccine into Muscle, Percutaneous Approach (ICD-10-PCS; 2022-06-26)
DX: O99.284 Endocrine, nutritional and metabolic diseases complicating childbirth (principal); O41.03X0 Oligohydramnios, third trimester, not applicable or unspecified; Z37.0 Single live birth; Z3A.39 39 weeks gestation of pregnancy; Z20.822 Contact with and (suspected) exposure to COVID-19; Z23 Encounter for immunization; O99.52 Diseases of the respiratory system complicating childbirth; J45.909 Unspecified asthma, uncomplicated; O71.82 Other specified trauma to perineum and vulva; Z91.040 Latex allergy status
CPT/HCPCS: 36415; 59200; 76815; 76819; 85014; 85018; 85027; 86850; 86900; 86901; G0378; J3490; J0595; J2590; J7120; U0003